=== PATIENT | female | born 1965 | race Caucasian/White ===

== ENCOUNTER 2020-09-09 14:44 | Emergency (ER) | payer BC, OTHER ==
[~2020-09-09] VITALS: Ht 157.5 cm; Wt 53.2 kg
[2020-09-09] MEDS ORDERED: NS 500 ML IV ONE (16:45)
[2020-09-09 17:19] LABS: HEMOGLOBIN 13.4 g/dl (12.0-15.5); MEAN CORPUSCULAR HEMOGLOBIN 30.9 pg (27.0-33.0); MEAN CORPUSCULAR HGB CONC 33.5 g/dl (32.0-36.5); MEAN CORPUSCULAR VOLUME 92.2 fl (80.0-96.0); PLATELET COUNT, AUTOMATED 317 10^3/uL (150-450); RED BLOOD COUNT 4.34 10^6/uL (4.00-5.40); WHITE BLOOD COUNT 8.8 10^3/uL (4.0-10.0)
[2020-09-09] MEDS ORDERED: ISOVUE-370 76% 100ML VIAL As Ordered ONE (17:42)
--- NOTE | 2020-09-09 19:20 | REPVR ---
PROCEDURE INFORMATION: Exam: CT Neck With Contrast Exam date and time: 09/09/2020 6:03 PM Age: 55 years old Clinical indication: Other: Enlarged lymph nodes TECHNIQUE: Imaging protocol: Computed tomography images of the neck with intravenous contrast. Radiation optimization: All CT scans at this facility use at least one of these dose optimization techniques: automated exposure control; mA and/or kV adjustment per patient size (includes targeted exams where dose is matched to clinical indication); or iterative reconstruction. Contrast material: ISOVUE 370; Contrast volume: 75 ml; Contrast route: INTRAVENOUS (IV); COMPARISON: No relevant prior studies available. FINDINGS: Nasopharynx: Unremarkable. Oropharynx: Unremarkable. No significant tonsillar enlargement. Hypopharynx: Unremarkable. Larynx: Unremarkable. Normal epiglottis. Retropharyngeal space: Unremarkable. Submandibular/Parotid glands: Normal. Glands are normal in size. Thyroid: Normal. No enlarged or calcified nodules. Lymph nodes: Mildly asymmetrically prominent left jugulodigastric lymph node measures 1.8 x 1.1 cm on image 65 of series 203, not pathologically enlarged. This probably represents a reactive lymph node. Upper normal short axis measurement for jugulodigastric lymph nodes is considered to be 1.5 cm. Trachea: Visualized trachea is unremarkable. Lungs: Unremarkable as visualized. Bones/joints: Severe cervical degenerative disc disease from C4-C5 through C6-C7. Degenerative retrolisthesis of C4 on C5 and C5 on C6. Advanced cervical facet arthropathy with grade 1 degenerative anterolisthesis of C3 on C4 and C7 on T1. Central spinal canal stenoses appear at least moderate in degree from C4-C5 through C6-C7. High-grade multilevel neural foraminal stenoses due to uncovertebral and facet arthropathy. Vasculature: Moderate calcified atherosclerotic plaque at the left carotid bulb causing moderate approximate 50% stenosis. Soft tissues: Unremarkable. No significant soft tissue swelling. IMPRESSION: 1. A mildly prominent left jugulodigastric lymph node, probably reactive. 2. Moderate left carotid bulb stenosis due to calcified atherosclerosis. 3. Advanced cervical spine degenerative changes with high-grade stenoses. Electronically signed by: Saima Javier On 09/09/2020 19:20:03 PM
[2020-09-09 20:04] VITALS: BP 132/76
--- NOTE | 2020-09-12 12:25 | ED PDOC ---
Post-Departure Follow-Up ct neck faxed to dr corona for fu Shaylee Kaplan MD Sep 12, 2020 12:25
== END 2020-09-09 20:07 | disposition home or self-care (01) ==
LOC: M ED 14:44
DX: R59.0 Localized enlarged lymph nodes (principal); I65.22 Occlusion and stenosis of left carotid artery; M50.321 Other cervical disc degeneration at C4-C5 level; M50.322 Other cervical disc degeneration at C5-C6 level; M43.12 Spondylolisthesis, cervical region; F17.200 Nicotine dependence, unspecified, uncomplicated; Z88.0 Allergy status to penicillin; Z88.1 Allergy status to other antibiotic agents; Z88.2 Allergy status to sulfonamides
CPT/HCPCS: 70491; 80047; 85027; 96360; 96361; 99284; Q9967

== ENCOUNTER → 2020-09-27 | Outpatient (CLI) | payer BC, OTHER ==
--- NOTE | 2020-09-28 06:29 | REP ---
INDICATION: ANNALISE CAROTID STENOSIS AND OCCLUSION COMPARISON: None. TECHNIQUE: Saleem scale and color Doppler evaluation using linear high frequency transducer Findings: FINDINGS: Two-dimensional saleem scale and color images demonstrate relatively normal age-appropriate without significant atheromatous changes. However, there is a focal solitary heavily calcified plaque at the proximal left internal carotid artery. Color Doppler interrogation demonstrates normal arterial wave patterns and velocities with no significant spectral broadening. Normal flow direction is appreciated in the bilateral vertebral arteries. ICA peak systolic velocity: Right 74.5 cm/s; Left 85.9 cm/s ICA diastolic velocity: Right 31.7 cm/s; Left 41.0 cm/s ECA peak systolic velocity: Right 44.6 cm/s; Left 50.1 cm/s CCA peak systolic velocity: Right 89.3 cm/s; Left 70.7 cm/s ICA/CCA ratio: Right 0.87 cm/s; Left 1.18 cm/s IMPRESSION: No hemodynamically significant areas of narrowing or stenosis appreciated. Based on set standards narrowing falls within the less than 50% range. Incidental solitary focus of heavily calcified plaque at the proximal internal carotid artery. <Electronically signed by Humza Barrera > 09/28/20 [id number]
== END ==
LOC: M RAD 10:23
PROVIDERS: ATTEND Otolaryngology
DX: I65.23 Occlusion and stenosis of bilateral carotid arteries (principal)

== ENCOUNTER → 2020-10-05 | Outpatient (CLI) | payer BC, OTHER ==
[~2020-10-05] MED LIST: LIDOCAINE 1% MDV 20ML VIAL As Ordered ONE
[2020-10-05 11:00] VITALS: BP 133/87
--- NOTE | 2020-10-05 15:18 | REP ---
INDICATION: LT ENLARGED LYMPH NODE. COMPARISON: None. TECHNIQUE: The procedure was performed under the direct supervision of Dr. Brown. The patient has a history of a mildly prominent left jugulodigastric lymph node seen on a previous CT scan dated 09/09/2020. The risks and benefits of the procedure were explained to the patient and informed consent was obtained. The left jugulodigastric lymph node was localized using ultrasound guidance. The skin was prepped and draped in a sterile fashion. 1% lidocaine was used as a local anesthetic. Using ultrasound guidance 8 fine needle aspirations were obtained using 25 gauge needles. The patient tolerated the procedure well and there were no immediate complications. After the appropriate amount to monitor convalescence the patient was discharged from the department. FINDINGS: None IMPRESSION: Ultrasound-guided left neck lymph node biopsy. <Electronically signed by Albin Wan > 10/05/20 1505 <Electronically signed by Marino Brown > 10/05/20 [id number]
== END ==
LOC: M IRPRO 10:07
PROVIDERS: ATTEND Otolaryngology
DX: R59.0 Localized enlarged lymph nodes (principal)

== ENCOUNTER → 2023-12-10 | Outpatient (REF) | LOC: M PLAIMG 13:49 | PROVIDERS: ATTEND Internal Medicine | DX: R52 Pain, unspecified (principal) ==